=== PATIENT | female | born 2000 | race Caucasian/White ===

== ENCOUNTER 2025-05-11 05:02 | Emergency (ER) | payer MEDICAID, SELFPAY ==
--- OUTSIDE RECORDS SUMMARY | 2025-05-11 05:14 | XMS_ITS | Clinical Summary ---
Author Organization [facility] Address [address] [facility] Attn: [place] [address] Care Team Providers Care Nurse Practitioner Name Role Phone Pepe Ellison MD Primary Care Provider Allergies No known active allergies Medications medroxyPROGEST ERone (DEPO-PROVERA) 150 mg/mL Syringe Inject 150 mg by intramuscular injection every 90 days. 9 Active ibuprofen (MOTRIN) 800 mg tabletIndicati ons:Wrist strain, right, initial encounter,Hand strain, right, initial encounter Take 1 Tablet (800 mg) by mouth every 8 hours as needed for Pain, Mild. 30 Tablet 0 0 Active Immunizations Immunization Administration Dates Next Due (M-M-R II/PRIORIX)(12 MO UP) MEASLES, MUMPS AND RUBELLA VIRUS VACCINE, 0.5 ML IM/SUBCUT 02/06/2004,12/08/1999 (VARIVAX)(12 MOS UP)VARICELL A VIRUS VACCINE (PF) 0.5 ML, SUB CUT 12/08/1999 Dt Dtp Dtap Vaccine 02/06/2004, 1,04/30/1999,1998,1998 HIB, Unspecified Formulation 02/27/2001, 04/30/1999,03/02/1999,1998 Hepatitis A Vaccine 08/30/2001,02/27/2001 Hepatitis B Vaccine 08/24/1999,1998,1998 IPV/OPV 02/06/2004, 0,03/02/1999,1998 Pneumococcal 7-valent conjug ate vaccine IM 08/30/2001,12/08/1999 Family History Medical History Relation Name Comments Healthy Father Heart Disease Maternal Aunt Lung Cancer Maternal Aunt Anxiety Mother Arrhythmia Mother Depression Mother Diabetes Mother Relation Name Status Comments Brother Alive Father Alive Maternal Aunt Mother Alive Sister 1 Alive Sister 2 Alive Sister 3 Alive Social History Tobacco Use Types Packs/Day Years Used Date Smoking Tobacco: Former Cigarettes Smokeless Tobacco: Never Comments:Quit smoking: Vape Alcohol Use Standard Drinks/Week Comments Not Currently 0 (1 standard drink = 0.6 oz pur e alcohol) Comments Unknown Sex and Gender Information Value Date Recorded Sex Assigned at Not on file Legal Sex Female 6:44 AM [employer] REPRESENTATIVE Gender Identity Not on file Sexual Orientation Not on file Last Filed Vital Signs Vital Sign Reading Time Taken Comments Blood Pressure 125/73 08/12/2022 3:00 PM [employer] REPRESENTATIVE Pulse 85 08/12/2022 3:00 PM [employer] REPRESENTATIVE Temperature 36.7 C (98 F) 08/12/2022 3:00 PM [employer] REPRESENTATIVE Respiratory Rate 16 08/12/2022 3:00 PM [employer] REPRESENTATIVE Oxygen Saturation 98% 08/12/2022 3:00 PM [employer] REPRESENTATIVE Inhaled Oxygen Concentration - - Weight 57.5 kg (126 lb 12.2 oz) 023 12:17 PM [employer] REPRESENTATIVE Height 172.7 cm (5' 8 ) 08/12/2022 12:1 7 PM [employer] REPRESENTATIVE Body Mass Index 19.27 08/12/2022 12:17 PM [employer] REPRESENTATIVE Plan of Treatment Upcoming Encounters Date Type Department Care Team (Late st Contact Info) Description 05/16/2025 8:30 AM [employer] REPRESENTATIVE Initial [facility] Arron Rolon [place] [address] [place] [address] Willian Woodson DO [address] [place] [address] Health Maintenance Due Date Last Done Comments Preventative Visit-Managed Medicaid 2017 CERVICAL CANCER SCREENING 10/28/2019 HPV/Cotest (21-29) 10/28/2019 PAP SMEAR 10/28/2019 DTAP/TDAP/TD VACCINES (7 - T d or Tdap) 01/20/2020 01/19/2010, 02/06/2004, 02/06/2004, Additional history exists INFLUENZA VACCINE (#1) 2025 03/22/2012 HEPATITIS B VACCINES Completed 08/24/1999, 08/24/1999, 1998, Additional history exists HPV VACCINES Completed 09/28/2010, 08/2009, 01/19/2010 Insurance [facility] [employer] Care Teams Nurse Practitioner Relationship Specialty Start Date End Date Pepe Ellison MD [facility] [place] [id number] PCP - General 07/05/02
[2025-05-11 05:18] VITALS: BP 116/83; PULSE 93; RESP 13; TEMP 36.8; O2SAT 99; BMI 22.8
--- NOTE | 2025-05-11 05:18 | ECG_ITS ---
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 Measurements Intervals [place] Rate: 94 P: 18 OR: 97 QRS: 58 QRSD: 102 T: 27 QT: 342 QTc: 429 Interpretive Statements SINUS RHYTHM WITH SHORT OR INTERVAL NONSPECIFIC T-WAVE ABNORMALITY No previous ECG available for comparison Electronically Signed On 05-11-2025 15:08:47 SOCIAL WORK PROFESSOR by Pillo Gaxiola M.D. [email or web address] [id number]
--- NOTE | 2025-05-11 05:25 | XRR_ITS ---
PROCEDURE INFORMATION: Exam: XR Chest Exam date and time: 05/11/2025 5:30 AM Age: 24 years old Clinical indication: Chest pressure; C/O chest pain; Additional info: Cp TECHNIQUE: Imaging protocol: Radiologic exam of the chest. Views: 1 view. COMPARISON: No relevant prior studies available. FINDINGS: Lungs: Unremarkable. No consolidation. Pleural spaces: Unremarkable. No pleural effusion. No pneumothorax. Heart/Mediastinum: Unremarkable. No cardiomegaly. Bones/joints: Unremarkable. XR/XR chest 1V portable [id number] IMPRESSION: No acute findings.
--- NOTE | 2025-05-11 05:39 | ED_ITS ---
Documented by User: Andi Salazar, DO 05/11/25 15:39 HPI - SOB/Dyspnea 2 General: Chief Complaint: Shortness of Breath/Dyspnea Stated Complaint: CP hurts breathing Time Seen by Provider: 05/11/25 05:33 History of Present Illness: HPI Narrative: 24-year-old female who believes she is a round 10 weeks . She woke up with left-sided mainly chest pain. Worse with deep breath. She has not really had a cough. No fever. She has been vomiting with early . No diarrhea. No abdominal pain. No other problems with her . She has not yet had her first OB appointment for this . Related Data Previous Rx's ?Medication ?Instructions ?Recorded ondansetron 4 mg disintegrating 4 mg PO Q6H PRN nausea and 05/11/25 tablet vomiting #14 tabs [facility] ED 2 Female Reproductive History: Date of last menstrual period: 02/17/25 Physical Exam 2 Const: GENERAL APPEARANCE: anxious (Mildly) HENMT: COMMON NORMALS: normocephalic, atraumatic and Normal external nose present HEAD & SCALP: normocephalic and atraumatic FACE & SINUS: normal facial exam and face symmetric NOSE: Normal external nose present Eye: COMMON NORMALS: Equal, round and reactive pupils present and EOMs intact bilaterally PUPIL: Yes Equal, round and reactive pupils present Neck/C-Spine: GENERAL: Yes trachea midline Chest: CHEST: Yes Symmetrical chest wall rise and Yes tenderness (Left chest wall) Resp: COMMON NORMALS: No retractions, No use of accessory muscles and clear to auscultation bilaterally AUSCULTATION: clear to auscultation bilaterally Cardio: COMMON NORMALS: regular rate and regular rhythm RATE: regular rate RHYTHM: regular rhythm GI: COMMON NORMALS: Normal to inspection, nondistended, normoactive bowel sounds present Extremity: COMMON NORMALS: no pedal edema Neuro: BHAVESH COMA SCALE: document GCS findings Bhavesh coma scale eye opening: Spontaneous [place] coma scale verbal response: Orientated Bhavesh coma scale motor response: Obey commands Bhavesh coma scale total score: 15 S ENSORY EXAM: Yes extremities (intact) Psych: COMMON NORMALS: speech normal SPEECH: Yes normal speech Course 2 Vital Signs: Vital signs: Vital Signs Temperature 98.2 F 05/11/25 05:18 Pulse Rate 99 05/11/25 08:05 Respiratory Rate 13 05/11/25 05:18 Blood Pressure 98/61 05/11/25 08:05 Pulse Oximetry 99 05/11/25 08:05 Oxygen Delivery Me thod Room Air 05/11/25 06:30 MDM - SOB/Dyspnea Medical Decision Making 24-year-old female with chest discomfort. She is 10 weeks . She has a history of spontaneous pneumothorax she tells me, with no prior interventions. Vitals are stable. She will be checked out at shift change to the oncoming physician. Took patient over from Dr. Salazar she had some dyspnea differential includes pneumothorax, pneumonia, pulmonary emboli. She is felt improved here x-ray here was interpreted me showed no signs of acute abnormality patient has no signs of pulmonary emboli here. Her heart rates been normal no chest pain no hypoxia she is stable for discharge follow-up PCP return for worsening Lab Data 05/11/25 05:39 05/11/25 05:39 Labs/Radiology: Radiology Impressions Chest X-Ray 05/11/25 05:25 IMPRESSION: No acute findings. Laboratory Results WBC 11.02 10^3/uL (3.29-11.43) 05/11/25 05:39 RBC 4.37 10^6/uL (3.85-5.65) 05/11/25 05:39 Hgb 13.80 g/dL (11.27-16.99) 05/11/25 05:39 Hct 41.6 % (36-47) 05/11/25 05:39 MCV 95.2 fl (85-98) 05/11/25 05:39 MCH 31.6 pg (27-33) 05/11/25 05:39 MCHC 33.2 g/dL (30-55) 05/11/25 05:39 RDW 12.1 % (12.1-15.1) 05/11/25 05:39 Plt Count 309 10^3/cmm (157-399) 05/11/25 05:39 MPV 9.1 fL (7.4-10.4) 05/11/25 05:39 Neut % (Auto) 69.9 % 05/11/25 05:39 Lymph % (Auto) 21.0 % 05/11/25 05:39 [place] % (Auto) 4.1 % 05/11/25 05:39 Eos % (Auto) 4.1 % 05/11/25 05:39 Baso % (Auto) 0.6 % 05/11/25 05:39 Neut # (Auto) 7.71 10^3/uL (1.8-7.7) H 05/11/25 05:39 Lymph # (Auto) 2.3 10^3/uL (0.8-4.8) 05/11/25 05:39 [place] # (Auto) 0.5 10^3/uL (0.2-0.9) 05/11/25 05:39 Eos # (Auto) 0.5 10^3/uL (0.0-0.8) 05/11/25 05:39 Baso # (Auto) 0.1 10^3/uL (0.0-0.1) 05/11/25 05:39 Nucleated RBC % (auto) 0 % 05/11/25 05:39 Nucleated RBCs # 0.0 /100WBC 05/11/25 05:39 Sodium 134 mmol/L (136-145) L 05/11/25 05:39 Potassium 3.6 mmol/L (3.5-5.1) 05/11/25 05:39 Chloride 97 mmol/L (98-107) L 05/11/25 05:39 Carbon Dioxide 26 mmol/L (22-29) 05/11/25 05:39 Anion Gap 14.6 (5-19) 05/11/25 05:39 BUN 6 mg/dL (6-20) 05/11/25 05:39 Creatinine 0.5 mg/dL (0.5-0.9) 05/11/25 05:39 GFR Calculation 149.1 mL/min (90-130) H 05/11/25 05:39 Glucose 120 mg/dL (65-115) H 05/11/25 05:39 Calculated Osmolality 277 mOsm/kg (285-295) L 05/11/25 05:39 Calcium 9.3 mg/dL (8.5-10.5) 05/11/25 05:39 Total Bilirubin 0.2 mg/dL (0.15-1.2) 05/11/25 05:39 AST 20 U/L (0-32) 05/11/25 05:39 ALT 23 U/L (0-33) 05/11/25 05:39 Alkaline Phosphatase 84 U/L (35-105) 05/11/25 05:39 Troponin T Baseline < 6 ng/L (0-10) 05/11/25 05:39 Total Protein 7.2 g/dL (6.6-8.7) 05/11/25 05:39 Albumin 4.7 g/dL (3.5-5.2) 05/11/25 05:39 Globulin 2.5 g/dL (1.3-4.6) 05/11/25 05:39 HCG, Qual Positive (Negative) H 05/11/25 05:39 Discharge Plan Discharge Patient Disposition: Home Clinical Impression: Dyspnea Condition: Stable Prescriptions: New ondansetron 4 mg tablet,disintegrating 4 mg PO Q6H PRN (Reason: nausea and vomiting) Qty: 14 0RF Discharge Orders: Discharge ED (Routine); Ordered 05/11/25 Ordered By: Shanice Denise Discharge Diet: Advance as tolerated Discharge Activity: Resume usual activity Patient Instructions: Dyspnea (ED) Print Language: Pakistani Coding Level of Care Code ED Dock Clerk for Chg Fwd Documented by User: Shanice Denise MD 05/11/25 08:21 HPI - SOB/Dyspnea 2 General: Chief Complaint: Shortness of Breath/Dyspnea Stated Complaint: CP hurts breathing Time Seen by Provider: 05/11/25 05:33 Related Data Previous Rx's ?Medication ?Instructions ?Recorded ondansetron 4 mg disintegrating 4 mg PO Q6H PRN nausea and 05/11/25 tablet vomiting #14 tabs Physical Exam 2 Neuro: BHAVESH COMA SCALE: document GCS findings Bhavesh coma scale total score: 15 Course 2 Vital Signs: Vital signs: Vital Signs Temperature 98.2 F 05/11/25 05:18 Pulse Rate 99 05/11/25 08:05 Respiratory Rate 13 05/11/25 05:18 Blood Pressure 98/61 05/11/25 08:05 Pulse Oximetry 99 05/11/25 08:05 Oxygen Delivery Me thod Room Air 05/11/25 06:30 MDM - SOB/Dyspnea Medical Decision Making 24-year-old female with chest discomfort. She is 10 weeks . She has a history of spontaneous pneumothorax she tells me, with no prior interventions. Vitals are stable. Should be checked out at shift change to the oncoming physician. Took patient over from Dr. Salazar she had some dyspnea differential includes pneumothorax, pneumonia, pulmonary emboli. She is felt improved here x-ray here was interpreted me showed no signs of acute abnormality patient has no signs of pulmonary emboli here. Her heart rates been normal no chest pain no hypoxia she is stable for discharge follow-up PCP return for worsening Medical Records I reviewed the patient's medical records. Lab Data I reviewed the patient's lab results. 05/11/25 05:39 05/11/25 05:39 Labs/Radiology: Radiology Impressions Chest X-Ray 05/11/25 05:25 IMPRESSION: No acute findings. Laboratory Results WBC 11.02 10^3/uL (3.29-11.43) 05/11/25 05:39 RBC 4.37 10^6/uL (3.85-5.65) 05/11/25 05:39 Hgb 13.80 g/dL (11.27-16.99) 05/11/25 05:39 Hct 41.6 % (36-47) 05/11/25 05:39 MCV 95.2 fl (85-98) 05/11/25 05:39 MCH 31.6 pg (27-33) 05/11/25 05:39 MCHC 33.2 g/dL (30-55) 05/11/25 05:39 RDW 12.1 % (12.1-15.1) 05/11/25 05:39 Plt Count 309 10^3/cmm (157-399) 05/11/25 05:39 MPV 9.1 fL (7.4-10.4) 05/11/25 05:39 Neut % (Auto) 69.9 % 05/11/25 05:39 Lymph % (Auto) 21.0 % 05/11/25 05:39 [place] % (Auto) 4.1 % 05/11/25 05:39 Eos % (Auto) 4.1 % 05/11/25 05:39 Baso % (Auto) 0.6 % 05/11/25 05:39 Neut # (Auto) 7.71 10^3/uL (1.8-7.7) H 05/11/25 05:39 Lymph # (Auto) 2.3 10^3/uL (0.8-4.8) 05/11/25 05:39 [place] # (Auto) 0.5 10^3/uL (0.2-0.9) 05/11/25 05:39 Eos # (Auto) 0.5 10^3/uL (0.0-0.8) 05/11/25 05:39 Baso # (Auto) 0.1 10^3/uL (0.0-0.1) 05/11/25 05:39 Nucleated RBC % (auto) 0 % 05/11/25 05:39 Nucleated RBCs # 0.0 /100WBC 05/11/25 05:39 Sodium 134 mmol/L (136-145) L 05/11/25 05:39 Potassium 3.6 mmol/L (3.5-5.1) 05/11/25 05:39 Chloride 97 mmol/L (98-107) L 05/11/25 05:39 Carbon Dioxide 26 mmol/L (22-29) 05/11/25 05:39 Anion Gap 14.6 (5-19) 05/11/25 05:39 BUN 6 mg/dL (6-20) 05/11/25 05:39 Creatinine 0.5 mg/dL (0.5-0.9) 05/11/25 05:39 GFR Calculation 149.1 mL/min (90-130) H 05/11/25 05:39 Glucose 120 mg/dL (65-115) H 05/11/25 05:39 Calculated Osmolality 277 mOsm/kg (285-295) L 05/11/25 05:39 Calcium 9.3 mg/dL (8.5-10.5) 05/11/25 05:39 Total Bilirubin 0.2 mg/dL (0.15-1.2) 05/11/25 05:39 AST 20 U/L (0-32) 05/11/25 05:39 ALT 23 U/L (0-33) 05/11/25 05:39 Alkaline Phosphatase 84 U/L (35-105) 05/11/25 05:39 Troponin T Baseline < 6 ng/L (0-10) 05/11/25 05:39 Total Protein 7.2 g/dL (6.6-8.7) 05/11/25 05:39 Albumin 4.7 g/dL (3.5-5.2) 05/11/25 05:39 Globulin 2.5 g/dL (1.3-4.6) 05/11/25 05:39 HCG, Qual Positive (Negative) H 05/11/25 05:39 All radiology interpretation(s) finalized by discharge Discharge Plan Discharge Patient Disposition: Home Clinical Impression: Dyspnea Condition: Stable Prescriptions: New ondansetron 4 mg tablet,disintegrating 4 mg PO Q6H PRN (Reason: nausea and vomiting) Qty: 14 0RF Discharge Orders: Discharge ED (Routine); Ordered 05/11/25 Ordered By: Shanice Denise Discharge Diet: Advance as tolerated Discharge Activity: Resume usual activity Patient Instructions: Dyspnea (ED) Print Language: Pakistani Coding Level of Care Code ED Dock Clerk for Jef Ceja
[2025-05-11 05:45] LABS: Hematocrit 41.6 % (36-47); Hemoglobin 13.80 g/dL (11.27-16.99); Mean Corpuscular HGB Conc 33.2 g/dL (30-55); Mean Corpuscular Hemoglobin 31.6 pg (27-33); Mean Corpuscular Volume 95.2 fl (85-98); Nucleated Red Blood Cells % 0 %; Platelet Count 309 10^3/cmm (157-399); Red Blood Count 4.37 10^6/uL (3.85-5.65); White Blood Count 11.02 10^3/uL (3.29-11.43)
[2025-05-11 06:05] LABS: Troponin(5th) Baseline < 6 ng/L (0-10)
[2025-05-11 06:12] LABS: HCG, Serum Qual Positive (Negative)
[2025-05-11 06:24] VITALS: BP 99/62; PULSE 89; O2SAT 100
[2025-05-11 06:30] VITALS: BP 110/63; PULSE 81; O2SAT 100
[2025-05-11 06:34] LABS: Alanine Aminotransferase 23 U/L (0-33); Albumin Level 4.7 g/dL (3.5-5.2); Alkaline Phosphatase 84 U/L (35-105); Anion Gap 14.6 (5-19); Aspartate Amino Transferase 20 U/L (0-32); Blood Urea Nitrogen 6 mg/dL (6-20); Calcium 9.3 mg/dL (8.5-10.5); Carbon Dioxide 26 mmol/L (22-29); Chloride 97 mmol/L (98-107); Creatinine Clr Calc Pharmacy 176.4538; Globulin 2.5 g/dL (1.3-4.6); Glucose 120 mg/dL (65-115); Osmolality Calculated 277 mOsm/kg (285-295); Potassium 3.6 mmol/L (3.5-5.1); Sodium 134 mmol/L (136-145); Total Protein 7.2 g/dL (6.6-8.7)
[2025-05-11] MEDS: ondansetron 2 mg/ML SDV 2 mL 4 MG IVP (06:38)
[2025-05-11 08:05] VITALS: BP 98/61; PULSE 99; O2SAT 99
== END 2025-05-11 08:11 | disposition home or self-care (01) ==
PROVIDERS: Emergency Medicine; Emergency Provider Emergency Medicine
DX: O26.891 Other specified pregnancy related conditions, first trimester (principal); Z3A.10 10 weeks gestation of pregnancy; R06.00 Dyspnea, unspecified
CPT/HCPCS: 36415; 71045; 80053; 84484; 84703; 85025; 93005; 96361; 96374; 96375; 99285; J2405; J3490; J7030